=== PATIENT | female | born 1955 | race Caucasian/White ===

== ENCOUNTER 2017-07-25 19:36 | Emergency (ER) | payer OTHER ==
[2017-07-25] MEDS ORDERED: Naproxen 500 MG TAB ONE (20:27)
== END 2017-07-25 20:37 | disposition home or self-care (01) ==
LOC: ERS 19:36
DX: R51 Headache (principal); E03.9 Hypothyroidism, unspecified; I10 Essential (primary) hypertension; J45.909 Unspecified asthma, uncomplicated; F41.9 Anxiety disorder, unspecified; Y08.89XA Assault by other specified means, initial encounter; Y99.0 Civilian activity done for income or pay
CPT/HCPCS: 99284

== ENCOUNTER 2017-09-08 09:21 | Outpatient (CLI) | payer OTHER | END 2017-09-08 09:22 | disposition home or self-care (01) | LOC: CTENTCT 09:21 | PROVIDERS: ATTEND Specialist | DX: J32.9 Chronic sinusitis, unspecified (principal) | CPT/HCPCS: 70486 ==

== ENCOUNTER 2017-10-21 14:19 | Outpatient (CLI) | payer OTHER | END 2017-10-21 14:20 | disposition home or self-care (01) | LOC: BICRAD 14:19 | DX: S93.411D Sprain of calcaneofibular ligament of right ankle, subsequent encounter (principal); M19.071 Primary osteoarthritis, right ankle and foot ==

== ENCOUNTER 2017-11-13 15:27 | Outpatient (CLI) | payer OTHER ==
--- NOTE | 2017-11-13 17:40 | MRI ---
BRAIN MRI WITHOUT CONTRAST 11/13/17 HISTORY: Having severe headaches for three months. Worsening over the last two weeks. Double vision and dizzin ess. COMPARISON: None. TECHNIQUE: Brain MRI is performed without intravenous gadolinium administration. Multisequential, multiplanar im aging is performed. FINDINGS: Appropriate T1 narrow signal intensity of the calvarium. Midline brain parenchymal structures are unr emarkable. No evidence of hemorrhage on the axial gradient echo sequence. No parenchymal mass, mass effect or mi dline shift. Brain volume, less than expected for patient's age. There are T2 and FLAIR hyperintensit ies involving the cerebrum. Some of these hyperintensities have a configuration that is suggestive of possible demyelinating plaques. Postcontrast imaging is recommended to assess for possible active de myelination. Additionally, lumbar puncture should be performed for CSF acquisition to assess for poss ible multiple sclerosis. There is adequate aeration of the sinuses and mastoid air cells. IMPRESSION: 1. Absent restricted diffusion. No acute infarct. 2. T2 and FLAIR white matter hyperintensities. Some of these hyperintensities have an orientatio n suggesting demyelinating process such as multiple sclerosis. No evidence of restricted diffusion to suggest active demyelination. Nevertheless, postcontrast imaging would be beneficial. Additionally, lumbar puncture can be performed for CSF acquisition and to assess for multiple sclerosis. POS: [facility]
== END 2017-11-13 15:28 | disposition home or self-care (01) ==
LOC: TBSIIMAG 15:27
PROVIDERS: ATTEND Psychiatry & Neurology Neurology
DX: R51 Headache (principal)
CPT/HCPCS: 70551

== ENCOUNTER 2017-11-13 16:52 | Emergency (ER) | payer OTHER ==
[2017-11-13] MEDS ORDERED: diphenhydrAMINE 50 MG/ML VIAL ONE (17:18)
[2017-11-13] MEDS ORDERED: Metoclopramide HCl 10 MG/2 ML VIAL ONE (17:18)
== END 2017-11-13 19:05 | disposition home or self-care (01) ==
LOC: SCSER 16:52
DX: R51 Headache (principal); I10 Essential (primary) hypertension; J45.909 Unspecified asthma, uncomplicated; F41.9 Anxiety disorder, unspecified; E03.9 Hypothyroidism, unspecified
CPT/HCPCS: 70551; 96361; 96374; 96375; J1200; J2765